=== PATIENT | female | born 1995 | race American Indian/Alaskan Native ===

== ENCOUNTER 2016-09-14 16:32 | Emergency (ER) | payer SELFPAY ==
[2016-09-14 17:21] LABS: Basophils % (Auto) 0.4 % (0.0-1.8); Eosinophils % (Auto) 2.3 % (0.0-4.3); Hematocrit 38.4 % (30.3-42.9); Hemoglobin 12.8 gm/dl (10.1-14.3); Mean Corpuscular HGB Conc 33 % (30-34); Mean Corpuscular Hemoglobin 31 pg (28-32); Mean Corpuscular Volume 93 fl (79-97); Platelet Count 218 K/mm3 (140-440); Red Blood Count 4.14 M/mm3 (3.65-5.03); Red Cell Distribution Width 13.8 % (13.2-15.2); White Blood Count 5.9 K/mm3 (4.5-11.0)
[2016-09-14 17:44] LABS: Alanine Aminotransferase 6 units/L (7-56); Albumin 4.2 g/dL (3.9-5); Albumin/Globulin Ratio 1.6 %; Alkaline Phosphatase 64 units/L (35-129); Anion Gap 15 mmol/L; BUN/Creatinine Ratio 18.33; Blood Urea Nitrogen 11 mg/dL (7-17); Carbon Dioxide 25 mmol/L (22-30); Chloride 104.5 mmol/L (98-107); Glucose 95 mg/dL (65-100); Lipase 28 units/L (13-60); Potassium 4.3 mmol/L (3.6-5.0); Sodium 140 mmol/L (137-145); Total Protein 6.9 g/dL (6.3-8.2)
[2016-09-14 18:32] LABS: Bilirubin,Urine NEG (Negative); Blood,Urine SM (Negative); Ketones,Urine NEG (Negative); Leukocyte Esterase,Urine TR (Negative); Mucus,Urine 1+ /HPF; Nitrite,Urine NEG (Negative); Protein,Urine <15 mg/dL mg/dL (Negative)
[2016-09-14] MEDS ORDERED: DECADRON IM ONE (20:37)
[2016-09-14] MEDS ORDERED: NORCO 5/325 PO ONE (20:37)
[2016-09-14] MEDS ORDERED: PROVENTIL IH ONE (20:38)
[2016-09-14] MEDS ORDERED: LIDOCAINE VISCOUS 2% PO ONE (20:38)
[2016-09-14] MEDS ORDERED: ATROVENT IH ONE (20:38)
[2016-09-14 20:40] VITALS: BP 125/80
--- NOTE | 2016-09-14 21:00 | Emergency Department Report ---
HPI - General Chief Complaint: Abdominal Pain Time Seen by Provider: 09/14/16 20:29 - HPI HPI: Room 24 The patient is a 21-year-old female presenting with a chief complaint of cough and laryngitis. The patient states 4 days ago she developed dizziness, subjective fever and hoarseness and a cough productive of yellow sputum. Patient states she's had a sore throat as well. Patient denies hemoptysis or rhinorrhea. Patient denies sick contacts. 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 The patient admits to chest pain which she believes is due to her frequent coughing as she describes the pain as a soreness when she coughs Location: see above Duration: [see above] Quality: Soreness Severity: Moderate Modifying factors: [see above] Context: [see above] Mode of transportation: The patient states she drove to the ED by her sister is able to drive her home if she was administered narcotic pain medication. The sister is at bedside and acknowledges she can drive the patient home ED Past Medical Hx - Past Medical History Previous Medical History?: No Additional medical history: Bronchitis - Surgical History Additional Surgical History: Left Eye - Family History Family history: no significant - Social History Smoking Status: Never Smoker Substance Use Type: None - Medications Home Medications: Home Medications Medication Instructions Recorded Confirmed Last Taken Type ALBUTEROL Inhaler [Proair] 2 puff IH QID PRN #1 inhalation 09/14/16 Unknown Rx Azithromycin [Zithromax Z-DEVIKA] 0 mg PO DAILY #6 tab 09/14/16 Unknown Rx Benzonatate [Tessalon Perles] 100 mg PO Q8HR #30 capsule 09/14/16 Unknown Rx HYDROcodone/APAP 5-325 [[place] 1 - 2 each PO Q6HR PRN #10 tablet 09/14/16 Unknown Rx 5/325] ED Review of Systems ROS: Stated complaint: CHEST PAIN/ABD PAIN/THROAT PAIN Other details as noted in HPI Comment: All other systems reviewed and negative Constitutional: fever (objective) Eyes: denies: eye pain, eye discharge, vision change ENT: denies: ear pain, throat pain Respiratory: cough, shortness of breath Cardiovascular: denies: palpitations Endocrine: no symptoms reported Gastrointestinal: denies: abdominal pain, nausea, diarrhea Genitourinary: denies: urgency, dysuria, discharge Musculoskeletal: myalgia Skin: denies: rash, lesions Neurological: denies: headache, weakness, paresthesias Psychiatric: denies: anxiety, depression Hematological/Lymphatic: denies: easy bleeding, easy bruising Physical Exam - Physical Exam Vital Signs: Vital Signs 09/14/16 09/14/16 09/14/16 17:01 20:33 20:39 Temperature 98.4 F Pulse Rate 82 71 70 Respiratory 20 14 13 Rate Blood Pressure 114/60 Blood Pressure 125/80 [Left] O2 Sat by Pulse 99 98 98 Oximetry 09/14/16 20:41 Temperature Pulse Rate 87 Respiratory 8 L Rate Blood Pressure 125/80 Blood Pressure [Left] O2 Sat by Pulse 100 Oximetry Physical Exam: GENERAL: The patient is well-developed well-nourished female sitting on stretcher not appearing to be in acute distress. The patient's voice is hoarse HEENT: Normocephalic. Atraumatic. Extraocular motions are intact. Patient has moist mucous membranes. Pharynx clear NECK: Supple. No meningitic signs are noted. No stridor appreciated CHEST/LUNGS: Occasional rhonchi and wheezing. There is no respiratory distress noted. HEART/CARDIOVASCULAR: Regular. There is no tachycardia. There is no gallop rub or murmur. ABDOMEN: Abdomen is soft, nontender. Patient has normal bowel sounds. There is no abdominal distention. SKIN: There is no rash. There is no edema. There is no diaphoresis. NEURO: The patient is awake, alert, and oriented. The patient is cooperative. The patient has normal speech MUSCULOSKELETAL: There is no evidence of acute injury. ED Course Vital Signs 09/14/16 09/14/16 09/14/16 17:01 20:33 20:39 Temperature 98.4 F Pulse Rate 82 71 70 Respiratory 20 14 13 Rate Blood Pressure 114/60 Blood Pressure 125/80 [Left] O2 Sat by Pulse 99 98 98 Oximetry 09/14/16 20:41 Temperature Pulse Rate 87 Respiratory 8 L Rate Blood Pressure 125/80 Blood Pressure [Left] O2 Sat by Pulse 100 Oximetry ED Medical Decision Making - Lab Data Result diagrams: 09/14/16 17:12 09/14/16 17:12 Laboratory Tests 09/14/16 09/14/16 09/14/16 17:12 17:12 18:08 WBC 5.9 RBC 4.14 Hgb 12.8 Hct 38.4 MCV 93 MCH 31 MCHC 33 RDW 13.8 Plt Count 218 Lymph % (Auto) 24.5 [place] % (Auto) 8.1 H Eos % (Auto) 2.3 Baso % (Auto) 0.4 Lymph # 1.4 [place] # 0.5 Eos # 0.1 Baso # 0.0 Seg Neutrophils % 64.7 Seg Neutrophils # 3.8 Sodium 140 Potassium 4.3 Chloride 104.5 Carbon Dioxide 25 Anion Gap 15 BUN 11 Creatinine 0.6 L Estimated GFR > 60 BUN/Creatinine Ratio 18.33 Glucose 95 Calcium 9.0 Total Bilirubin 0.20 AST 12 ALT 6 L Alkaline Phosphatase 64 Total Protein 6.9 Albumin 4.2 Albumin/Globulin Ratio 1.6 Lipase 28 Urine Color Yellow Urine Turbidity Clear Urine pH 6.0 Ur Specific [place] 1.019 Urine Protein <15 mg/dl Urine Glucose (UA) Neg Urine Ketones Neg Urine Blood Sm Urine Nitrite Neg Urine Bilirubin Neg Urine Urobilinogen 2.0 Ur Leukocyte Esterase Tr Urine WBC (Auto) 3.0 Urine RBC (Auto) 1.0 U Epithel Cells (Auto) 4.0 Urine Mucus 1+ Urine HCG, Qual Negative - EKG Data -: EKG Interpreted by Me EKG shows normal: sinus rhythm Rate: normal - EKG Data When compared to previous EKG there are: previous EKG unavailable - Radiology Data Radiology results: image reviewed (chest x-ray, lateral soft tissue neck x-ray) interpreted by me: Chest x-ray-no focal infiltrates, no pneumothorax Lateral soft tissue neck x-ray-no prevertebral swelling, normal epiglottis. - Differential Diagnosis pneumonia, bronchitis, laryngitis, epiglottitis, Critical care attestation.: If time is entered above; I have spent that time in minutes in the direct care of this critically ill patient, excluding procedure time. ED Disposition Clinical Impression: Acute bronchitis, Laryngitis Disposition: DISCHARGED TO HOME OR SELFCARE Is pt being admited?: No Does the pt Need Aspirin: No Condition: Stable Instructions: Abdominal Pain (ED), Acute Bronchitis (ED) Additional Instructions: Return to the emergency department immediately should you develop worsening symptoms, fever, inability to tolerate food or liquid or any other concerns. Prescriptions: ALBUTEROL Inhaler [Proair] 2 puff IH QID PRN #1 inhalation PRN Reason: Shortness Of Breath Azithromycin [Zithromax Z-DEVIKA] 0 mg PO DAILY #6 tab Benzonatate [Tessalon Perles] 100 mg PO Q8HR #30 capsule HYDROcodone/APAP 5-325 [[place] 5/325] 1 - 2 each PO Q6HR PRN #10 tablet PRN Reason: Pain Referrals: PRIMARY CAREMD [Primary Care Provider] - 3-5 Days KALYAN CESPEDES MD [Staff Physician] - 3-5 Days (Dr Kiet Tong is an ear nose and throat doctor. Please follow up with her for further evaluation) Time of Disposition: 21:22
--- NOTE | 2016-09-15 08:48 | XRay Report ---
AP AND LATERAL SOFT TISSUES OF THE NECK: Sore throat The contour of the upper airway appears within normal limits. The epiglottis is not enlarged. No prevertebral soft tissue swelling is apparent. No mass density or foreign body is evident. IMPRESSION: Normal study.
--- NOTE | 2016-09-15 08:49 | XRay Report ---
ROUTINE CHEST, TWO VIEWS: Cough, SOB PA and lateral views demonstrate the heart and mediastinal contour to be of normal size and shape. The lungs are clear and fully expanded and the soft tissues and bony structures are normal. Precordial leads are present. IMPRESSION: Normal study.
== END 2016-09-14 21:35 | disposition home or self-care (01) ==
LOC: ED 16:32
DX: J20.9 Acute bronchitis, unspecified (principal); J04.0 Acute laryngitis
CPT/HCPCS: 36415; 70360; 71020; 80053; 81001; 81025; 83690; 85025; 93005; 93010; 96372; 99284; J1100